=== PATIENT | female | born 2000 ===

== ENCOUNTER 2022-07-14 07:28 | Day surgery (SDC) | payer OTHER ==
[2022-07-14] MEDS ORDERED: IBU800 MG PO (19:58)
[2022-07-14] MEDS ORDERED: PERCOCET 5-3251 EACH PO (19:58)
[2022-07-14] MEDS ORDERED: COLACE100 MG PO (19:58)
== END 2022-07-14 21:30 | disposition home or self-care (01) ==
LOC: CIR.AMB 07:28
PROVIDERS: ATTEND Student in an Organized Health Care Education/Training Program
DX: D27.1 Benign neoplasm of left ovary (principal); F41.9 Anxiety disorder, unspecified; F12.90 Cannabis use, unspecified, uncomplicated; Z20.822 Contact with and (suspected) exposure to COVID-19